=== PATIENT | female | born 1955 | race Caucasian/White ===

== ENCOUNTER 2025-07-27 00:19 | Day surgery (SDC) | payer MEDICARE, SELFPAY ==
[2025-07-17 14:33] VITALS: BMI 27.2
--- NOTE | 2025-07-17 15:40 | PC.NURSE ---
Spoke with _PATIENT regarding medication PLAVIX. PATIENT verbalizes understanding that the last dose is to be taken on 07/19/2025 and the Endoscopist will instruct them when to restart after the procedure.
--- OUTSIDE RECORDS SUMMARY | 2025-07-27 00:22 | XMS_ITS | Clinical Summary ---
Author Organization [facility] Address [address] [place] [address] Care Team Providers Care Warehouseman Name Role Phone Atif Hernández DO Primary Care Provider [phone] Source Comments [facility],non-owned Affiliates and Associated Physician Practices is amultiple site organization consisting of ambulatory clinics and [place]in [place] and [place]. This disclosure is being madepursuant to the Care Everywhere program and may not contain all information available regarding this patient. Last updated 18.[facility] Allergies No known active allergies Medications * Be aware that medications may not be up to date on this document. Alwaysverify current medications with the patient. carvedilol (COREG) 25 MG tablet TK 1 T PO QD 1 04/06/2017 Active JARDIANCE 10 MG tablet TK 1 T PO QD IN THE MORNING 6 04/06/2017 Active losartan-hydroC HLOROthiazide (HYZAAR) 100-25 MG tablet TK 1 T PO QD 3 04/12/2017 Active metFORMIN (GLUCOPHAGE) 500 MG tablet TK 2 TS PO BID WITH THE MORNING AND KORY MEAL 3 04/12/2017 Active simvastatin (ZOCOR) 40 MG tablet TK 1 T PO QD 1 04/06/2017 Active [place]-3 Fatty Acids (RA FISH OIL) 1000 MG Active clobetasol (TEMOVATE) 0.05 % ointment Apply to affected area every 12 hours 04/14/2015 Active Cholecalciferol (VITAMIN D3) 400 units Active nystatin (MYCOSTATIN) 051732 UNIT/GM cream Apply to affected area 2 times daily Apply to the affected area 2 times daily to the vulva in the am and evening. 30 g 06/16/2020 Active triamcinolone acetonide (KENALOG) 0.1 % cream Apply to affected area 2 times daily 30 g 06/16/2020 Active Active Problems Problem Noted Date Diagnosed Date Hypertension Diabetes Hypercholesteremia Lichen sclerosus Immunizations Immunization Administration Dates Next Due INFLUENZA VACCINE, QUADR. 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 Gender Identity Not on file Sexual Orientation Not on file Last Filed Vital Signs Vital Sign Reading Time Taken Comments Blood Pressure 124/84 06/16/2020 2:54 PM CDT Pulse - - Temperature 36.2 C (97.2 F) 06/16/2020 2:54 PM CDT Respiratory Rate - - Oxygen Saturation - - Inhaled Oxygen Concentration - - Weight 85 kg (187 lb 6.4 oz) 06/16/2020 2:54 PM CDT Height 160 cm (5' 3) 06/16/2020 2:54 PM CDT Body Mass Index 33.2 06/16/2020 2:54 PM CDT Plan of Treatment Health Maintenance Due Date Last Done Comments BONE DENSITY TESTING 1955 COLOGUARD (AGES 45-75) - COL ON CA SCREENING 1956 COLON MONITORING 1956 COLONOSCOPY - COLON CA SCREENING [address] CT COLONOGRAPHY - COLON CA SCREENING 1956 Colorectal Cancer Screening 1956 FIT - COLON CA SCREENING 1956 FLEX SIG - COLON CA SCREENING 1956 HEPATITIS C SCREENING 02/15/1974 DIABETES-SERUM CREATININE 02/19/1974 DTAP/TDAP/TD VACCINES (1 - Tdap) 02/19/1975 PNEUMOCOCCAL VACCINE 50+ (1 of 1 - PCV) 02/19/2006 Respiratory Syncytial Virus (RSV) Vaccine Pt: or over 60 yrs (1 - Risk 50-74 years 1-dose series) 02/19/2006 ZOSTER VACCINE (1 of 2) 02/19/2006 DIABETES-FOOT EXAM WITH MONOFILAMENT 06/10/2019 DIABETES-HGB A1C 06/10/2019 MAMMOGRAM 03/18/2021 03/18/2019, 03/18/2019, 02/09/2017 DEPRESSION SCREENING 09/03/2024 DIABETES - URINE PROTEIN SCREENING 09/03/2024 COVID-19 VACCINE (1 - 2024-2 6 season) 2025 INFLUENZA VACCINE (#1) 2025 04/17/2019 HEPATITIS B VACCINE Aged Out No longe r eligible based on patient's age to complete this topic HIB VACCINE Aged Out No longer eligi ble based on patient's age to complete this topic HPV VACCINE Aged Out No longer eligi ble based on patient's age to complete this topic MENINGOCOCCAL (Group B) VACCINE SHARED DECISION-MAKING Aged Out No longer eligible based on patient's age to complete this topic MENINGOCOCCAL GROUPS A/C/Y/W VACCINE Aged Out No longer eligible b ased on patient's age to complete this topic Procedures Procedure Name Priority Date/Time Associated Diagnosis Comments MAMMOGRAPHY ORDER Routine 03/18/2019 from Last 3 Months or Most Recently Relevant to Health Maintenance Results * MAMMOGRAPHY ORDER (03/18/2019) Anatomical Region Laterality Modality Mammography Kathryn Olmstead MD MAMMO ORDERABLES Final Resu lt from Last 3 Months or Most Recently Relevant to Health Maintenance Insurance [employer] Care Teams Warehouseman Relationship Specialty Start Date End Date Greeling, Atif L, DO [address] [place] [address] PCP - General Internal Medicine 06/11/19
--- OUTSIDE RECORDS SUMMARY | 2025-07-27 00:22 | XMS_ITS | Clinical Summary ---
Author Organization [facility] Address [address] [place] [address] Care Team Providers Care Questioned Documents Examiner Name Role Phone Ayo Regalado MD Unavailable [phone] Harman Godfrey DO Primary Care Provider [phone] Allergies Active Allergy Reactions Criticality Noted Date Comments Penicillin G Rash Medium 11/04/2024 Medications pen needle, diabetic (BD Ultra-Fine Mini Pen Needle) 31 gauge x 3/16 needleIndicatio ns:Type 2 diabetes mellitus with hyperglycemia, without long-term current use of insulin (HCC) Use one pen needle daily to inject insulin 100 each 3 1 Active blood-glucose meter kitIndications: Type 2 diabetes mellitus with hyperglycemia, without long-term current use of insulin (HCC) Use daily or as directed for monitoring of diabetes 1 each 1 Active OneTouch Ultra2 Meter misc USE TO TEST TWICE DAILY 1 Active omega-3 fatty acids-fish oil 300-1,000 mg capsule Take 2 capsules (2 g total) by mouth daily Active carvediloL (COREG) 25 mg tablet Take 1 tablet (25 mg total) by mouth 2 (two) times a day with meals Active cholecalciferol 25 mcg (1,000 unit) tablet Take 1 tablet (1,000 Units total) by mouth daily Active diphenhydrAMINE 25 mg capsule Take 1 tablet/capsule (25 mg total) by mouth every 8 (eight) hours as needed for itching Active loratadine (CLARITIN) 10 mg tablet Take 1 tablet (10 mg total) by mouth daily Active losartan (COZAAR) 100 mg tablet Take 1 tablet (100 mg total) by mouth daily Active chlorhexidine (PERIDEX) 0.12 % oral rinse 5 Active Afrin, oxymetazoline, 0.05 % nasal spray USE 2 SPRAYS IN EACH NOSTRIL EVERY 12 HOURS FOR 4 DAYS NEEDED FOR NASAL CONGESTION 5 Active lancets (PredictSpringTouch DelFRESS Lancets) 30 gauge miscIndications :Type 2 diabetes mellitus with hyperglycemia, with long-term current use of insulin ([facility]) Check BG bid 200 each 3 5 Active clopidogreL (PLAVIX) 75 mg tabletIndicatio ns:Stroke with cerebral ischemia ([facility]) Take 1 tablet (75 mg total) by mouth daily 90 tablet 3 5 11/13/19 Active cetirizine (ZyrTEC) 10 mg tablet Take 1 tablet (10 mg total) by mouth daily 5 Active PredictSpringTouch Ultra Test stripIndication s:Type 2 diabetes mellitus with hyperglycemia, with long-term current use of insulin ([facility]) USE TO TEST TWICE DAILY 200 strip 1 5 Active semaglutide (OZEMPIC) 2 mg/dose (8 mg/3 mL) pen injector injectionIndica tions:type 2 diabetes mellitus Inject 2 mg under the skin once a week 9 mL 3 5 06/17/20 Active empagliflozin (Jardiance) 25 mg tabletIndicatio ns:type 2 diabetes mellitus Take 1 tablet (25 mg total) by mouth daily 90 tablet 3 5 Active atorvastatin (LIPITOR) 40 mg tabletIndicatio ns:Hyperlipidem ia associated with type 2 diabetes mellitus (HCC) Take 1 tablet (40 mg total) by mouth daily 90 tablet 3 5 06/17/20 26 Active metFORMIN (GLUCOPHAGE) 500 mg tabletIndicatio ns:Type 2 diabetes mellitus with hyperglycemia, with long-term current use of insulin ([facility]) Take 2 tablets (1,000 mg total) by mouth 2 (two) times a day with meals 360 tablet 3 5 06/17/20 Active Active Problems Problem Noted Date Diagnosed Date Iron deficiency anemia 03/11/2025 Assessment & Plan (03/11/2025 11:04 AM CDT): Chronic problem. CBC WNL when checked 08/2024. Would like iron studies/labs checked. Will forward to Dr Godfrey with results. Will update labs. Does not mychart. Verified phone #/address to contact re: results. Stroke with cerebral ischemia 08/31/2024 Assessment & Plan (11/12/2024 3:01 PM CDT): Betty had a left malcolm radiata stroke in August of 2024 resulting in slurred speech and difficulty with using her right hand. Stroke workup including CTA of head and neck and echocardiogram were unremarkable. She reports significant improvement in her symptoms and denies any loss of functionality. The patient endorses compliance with her antiplatelet and high-intensity statin therapy. Plan: Continue clopidogrel 75 mg daily. Continue atorvastatin 40 mg daily. Continue blood glucose control, the patient is followed by endocrinology. Advised the patient to check blood pressures regularly at home, dizziness could be due to low blood pressures. Continue well-balanced diet and regular physical activity. Discussed BEFAST and the importance of presenting to the ED at the onset of any stroke-like symptoms. Follow up in 1 year. Class 1 obesity due to exces s calories with serious comorbidity and body mass index (BMI) of 31.0 to 31.9 in adult 09/20/2022 Assessment & Plan (09/20/2022 2:51 PM FINANCIAL INVESTIGATOR): Discussed healthy diet and importance of regular physical activity (20- 30min/day, 150min/wk). Microalbuminuria due to type 2 diabetes mellitus 12/09/2020 Assessment & Plan (06/17/2025 8:31 AM CDT): Chronic problem. Currently taking Losartan 100mg. MA improved from 03/05/24 (1696) to now 03/11/25 (465). Assessment & Plan (03/11/2025 10:45 AM CDT): Chronic problem. Currently taking Losartan 100mg. Last MA: 03/05/24 (1696). Will update labs. Does not mychart. Verified phone #/address to contact re: results. Assessment & Plan (11/04/2024 1:21 PM FINANCIAL INVESTIGATOR): Chronic problem. Currently taking Losartan 100mg. Last MA: 03/05/24 (1696). Assessment & Plan (03/05/2024 2:04 PM CDT): Chronic problem. Currently taking Losartan 100mg. Last MA: 09/20/22 (264). Will update labs today. Does not mychart. Verified phone #/address to contact re: results. Assessment & Plan (07/31/2023 2:34 PM FINANCIAL INVESTIGATOR): Chronic problem. Losartan 100mg. Last MA: 09/20/22 (264). Assessment & Plan (12/09/2020 2:56 PM CDT): Need to improve DM control On ARB with Losartan Adequate BP control Hyperlipidemia associated with type 2 diabetes [place] 05/09/2018 Assessment & Plan (06/17/2025 8:29 AM CDT): Chronic problem. Controlled LDL on current Atorvastatin 40mg & vascepa 2gm bid. Last lipid panel: 03/11/25 LDL=56, QW=862. Assessment & Plan (03/11/2025 10:44 AM CDT): Chronic problem. Controlled LDL on current Simvastatin 40mg & vascepa 2gm bid. Last lipid panel: 09/01/24 LDL=69, BF=092. Will update labs. Does not mychart. Verified phone #/address to contact re: results. Assessment & Plan (11/04/2024 1:19 PM FINANCIAL INVESTIGATOR): Chronic problem. Controlled LDL on current Simvastatin 40mg & vascepa 2gm bid. Last lipid panel: 09/01/24 LDL=69, YG=238. Assessment & Plan (03/05/2024 2:05 PM CDT): Chronic problem. Controlled LDL on current Simvastatin 40mg & vascepa 2gm bid. Last lipid panel: 09/20/22 LDL=36, LS=324. Will update labs today. Does not mychart. Verified phone #/address to contact re: results. Assessment & Plan (07/31/2023 2:33 PM FINANCIAL INVESTIGATOR): Chronic problem. Controlled LDL on current Simvastatin 40mg & vascepa 2gm bid. Last lipid panel: 09/20/22 LDL=36, KK=181. Assessment & Plan (03/05/2023 4:12 PM CDT): Uncontrolled, with hypertriglyceridemia Will start Vascepa Will check ApoB and Lipoprotein a Assessment & Plan (09/20/2022 3:14 PM FINANCIAL INVESTIGATOR): Chronic problem, simvastatin 40mg daily. Last lipid 06/2021. No changes. Updated labs today. Verified that she uses [facility]. Aware to check results/results letter in [facility]. Will contact by phone if needed. Assessment & Plan (05/02/2022 3:21 PM CDT): Chronic problem. On statin therapy, no changes. Assessment & Plan (06/27/2021 4:02 PM CDT): Chronic problem. On statin therapy, no changes. Assessment & Plan (09/06/2020 9:15 AM FINANCIAL INVESTIGATOR): At goal on current medications. Continue statin therapy. Assessment & Plan (06/07/2020 12:23 PM CDT): Will check lipid panel Assessment & Plan (01/07/2020 8:43 AM CDT): Continue statin therapy Assessment & Plan (04/03/2019 2:09 PM CDT): Goal of treatment , LDL cholesterol less than 100 ( less than 70 in patients with history of heart attacks and / or strokes ) NonHDL cholesterol ( total cholesterol minus HDL cholesterol ) goal less than 130 ( less than 100 in patients with history of heart attacks and / or strokes ) Low cholesterol, low fat diet was discussed and advised. Daily exercise On statin therapy . Add vascepa Assessment & Plan (09/19/2018 3:55 PM FINANCIAL INVESTIGATOR): Goal of treatment , LDL cholesterol less than 100 ( less than 70 in patients with history of heart attacks and / or strokes ) NonHDL cholesterol ( total cholesterol minus HDL cholesterol ) goal less than 130 ( less than 100 in patients with history of heart attacks and / or strokes ) Low cholesterol, low fat diet was discussed and advised. Daily exercise On statin therapy Assessment & Plan (05/09/2018 2:19 PM CDT): Goal of treatment , LDL cholesterol less than 100 ( less than 70 in patients with history of heart attacks and / or strokes ) NonHDL cholesterol ( total cholesterol minus HDL cholesterol ) goal less than 130 ( less than 100 in patients with history of heart attacks and / or strokes ) Low cholesterol, low fat diet was discussed and advised. Daily exercise On statin therapy Type 2 diabetes mellitus wit h hyperglycemia, with long-term current use of insulin 04/18/2017 Assessment & Plan (06/17/2025 8:32 AM CDT): Chronic problem. A1c improved from 5.8% 03/11/25 to now 5.7%. Current medications: Metformin 1000mg twice daily with meals Jardiance 25mg daily Ozempic 2 mg weekly Basaglar 5 units nightly UTD on labs. DM eye exam in 2021. Will call to schedule DM eye exam. Strive for regular exercise (30min most days) and diet (get at least 4-5 servings of fruit and veggies daily, avoid processed foods, increase lean protein intake and decrease carb portions as well as fruit juices, regular soda & desserts). Watch carbs and simple sugars. Check the blood sugar weekly. Check the feet daily for skin breakdown and infection. Assessment & Plan (03/11/2025 11:01 AM CDT): Chronic problem. A1c improved from 7.3% 11/04/24 to now 5.8%. occasionally wakes feeling ill but not checking BG. -cut the basaglar down to 5 units for the next week. Monitor your morning blood sugars. If they don't go above 140, the following week stop the basaglar & continue to monitor the blood sugar. Current medications: Metformin 1000mg twice daily with meals Jardiance 25mg daily Ozempic 2 mg weekly Basaglar 5 units nightly Will update labs. Does not mychart. Verified phone #/address to contact re: results. DM eye exam in 2021. Will call to schedule DM eye exam. Strive for regular exercise (30min most days) and diet (get at least 4-5 servings of fruit and veggies daily, avoid processed foods, increase lean protein intake and decrease carb portions as well as fruit juices, regular soda & desserts). Watch carbs and simple sugars. Check the blood sugar weekly. Check the feet daily for skin breakdown and infection. Assessment & Plan (11/04/2024 1:46 PM FINANCIAL INVESTIGATOR): Chronic problem. A1c improved from 8.9% 09/01/24 to now 7.3%. Increase Ozempic from 1mg to 2mg weekly. Current medications: Metformin 1000mg twice daily with meals Jardiance 25mg daily Ozempic 2 mg weekly Basaglar 10 units nightly UTD on labs. DM eye exam in 2021. Will call to schedule DM eye exam. Strive for regular exercise (30min most days) and diet (get at least 4-5 servings of fruit and veggies daily, avoid processed foods, increase lean protein intake and decrease carb portions as well as fruit juices, regular soda & desserts). Watch carbs and simple sugars. Check the blood sugar weekly. Check the feet daily for skin breakdown and infection. Assessment & Plan (03/05/2024 2:18 PM CDT): Chronic problem. A1c improved very slightly from 7.7% 07/31/23 to now 7.6%. was off Ozempic over 1 month & recently at all-inclusive x9 days & did not watch diet. Current medications: Metformin 1000mg twice daily with meals Jardiance 25mg daily Ozempic 1mg weekly Basaglar 10 units nightly Will update labs today. Does not mychart. Verified phone #/address to contact re: results. DM eye exam in 2022. Will call to schedule DM eye exam. Strive for regular exercise (30min most days) and diet (get at least 4-5 servings of fruit and veggies daily, avoid processed foods, increase lean protein intake and decrease carb portions as well as fruit juices, regular soda & desserts). Watch carbs and simple sugars. Check the blood sugar weekly. Check the feet daily for skin breakdown and infection. Assessment & Plan (07/31/2023 2:35 PM FINANCIAL INVESTIGATOR): Chronic problem. Current medications: Metformin 1000mg twice daily with meals Jardiance 25mg daily Ozempic 1mg weekly Basaglar 10 units nightly UTD on labs. DM eye exam Strive for regular exercise (30min most days) and diet (get at least 4-5 servings of fruit and veggies daily, avoid processed foods, increase lean protein intake and decrease carb portions as well as fruit juices, regular soda & desserts). Watch carbs and simple sugars. Check the blood sugar daily. Check the feet daily for skin breakdown and infection. Assessment & Plan (03/05/2023 4:13 PM CDT): Chronic, well-controlled Continue current regimen including Ozempic, Jardiance, metformin and Basaglar Assessment & Plan (09/20/2022 3:14 PM FINANCIAL INVESTIGATOR): Chronic problem, has been off of basaglar x2 mos & A1c has remained steady. Plans to retire this summer. Continue current medications: Metformin 1 gm BID Jardiance 25 mg Ozempic 1 mg weekly Basaglar 10 units qHS Will update labs today. Verified that she uses mychart. Aware to check results/results letter in [email or web address]. Will contact by phone if needed. Assessment & Plan (05/02/2022 3:23 PM CDT): Chronic problem, not at goal. Resume metformin 1000 mg BID. Increase Ozempic to 1 mg. Will stop Januvia as she had some GI side effects when Ozempic was initially started at 0.5 mg and going to get more benefit from GLP1a vs DDPIV. Continue Jardiance and Basaglar. If CBGs start to drop low again once on this combination, let us know and we can adjust or stop the Basaglar. Update routine labs. Assessment & Plan (06/27/2021 4:03 PM CDT): Chronic problem, significantly improved despite being off medications for a few weeks. No medication changes today, discussed as she's back on all meds and watching diet if starts to have lows then taper down Lantus. Schedule eye exam. Update MA/Cr and CMP today. Assessment & Plan (12/09/2020 2:55 PM CDT): Hba1c was Lab Results Component Value Date HGBA1C 8.6 12/09/2020 today, indicating inadequate DM control Goal blood sugars in the 120-150 range , with Hb1c under 7.0 % was explained 1800 calorie, consistent carb diet recommended. No more than 30-45 grams of carbs per meal recommended, as well as avoiding high concentrated sweet drinks . 25-45 min daily exercise, combining both aerobic and resistance exercise recommended. The need to monitor blood glucose before meals and bedtime was discussed. Prevention and treatment of hyypoglcyemia discussed. Increase Lantus to 12 units hs Start Ozempic, 0.25 mg weekly x 4 wks, then continue with 0.5 mg weekly Assessment & Plan (09/06/2020 9:37 AM FINANCIAL INVESTIGATOR): Will draw lab A1c as cannot obtain POC. Suspect it is more elevated that DANIEL. DM for > 10 years. Not compliant with diet. Start Lantus 10 units and provided with instructions to increase to goal of low 100's. Check BG bid. Reviewed importance of diet on BG control. Assessment & Plan (06/07/2020 12:26 PM CDT): A1c worsening to 9.1. Not compliant with taking medication. Increase Jardiance to 25 mg. Start Januvia 100, Continue metformin. Advised to get in some form of daily exercise. Assessment & Plan (01/07/2020 8:44 AM CDT): Continue with Onglyza, metformin and Jardiance. Check BG once a day before a Meal. BG goals reviewed. Assessment & Plan (04/03/2019 2:05 PM CDT): Hba1c was Lab Results Component Value Date HGBA1C 7.8 04/03/2019 today, indicating sub-optimal DM control 1800 calorie, consistent carb diet recommended 25-45 min daily aerobic and resistance exercise recommended Prevention and treatment of hyypoglcyemia discussed. Blood glucose monitoring with fingers sticks 1-2 x day . Oral medications: continue current regimen Assessment & Plan (09/19/2018 3:54 PM FINANCIAL INVESTIGATOR): Hba1c was Lab Results Component Value Date HGBA1C 9.8 09/19/2018 today, indicating poor , worsening DM control 1800 calorie, consistent carb diet recommended 25-45 min daily aerobic and resistance exercise recommended Prevention and treatment of hyypoglcyemia discussed. Blood glucose monitoring with fingers sticks 1-2 x day . Oral medications: restart Ongliza Would consider starting insulin next OV Assessment & Plan (05/09/2018 2:19 PM CDT): Your Hba1c today was: Lab Results Component Value Date HGBA1C 8.4 05/09/2018 meaning a 3 month average sugar of : 200 Your goal hba1c is under 7.0 to prevent terminologist diabetes complications ( eye , kidney and nerve damage ) . Your goal sugars are in the 90-130 range Daily aerobic ( walking, riding a bike, swimming ) and resistance exercises ( light weight lifting, resistance band stretching ) for at least 30 minutes is recommended If you can not walk, chair exercises is very acceptable. As little as 15-20 minutes exercise , in one or two sessions a day, is still very helpful and will help to improve your diabetes control . Eat small portion meals, no more than 1800 calories Diet Try to eat not more than than 2-3 servings of carbs ( starches ) wiith your meals. Avoid soft drinks, including regular sodas , fruit juices and sweetened tea. Drink water instead. Eat plenty of green and leafy vegetables, including salads. Take your medications regularly Monitor your sugar levels with finger sticks regularly and keep a log sheet or book. Bring your sugar meter and /or a log book or log sheet to every office visit. Might consider use of Trulicity, which would help to curve your appetite. Assessment & Plan (10/18/2017 3:44 PM FINANCIAL INVESTIGATOR): Hba1c was 7.6 today, indicating sub-optimal DM control 1800 calorie, consistent carb diet recommended 30 min daily aerobic and resistance exercise recommended Prevention and treatment of hyypoglcyemia discussed. Blood glucose monitoring with fingers sticks 1-2 x day . Assessment & Plan (08/08/2017 1:10 PM FINANCIAL INVESTIGATOR): A1c 7.6. Restart Onglyza. No change to other medication. Needs to focus on food choices. Holiday eating strategies discussed. Assessment & Plan (04/18/2017 4:05 PM CDT): A1c improved at 7.5 but still suboptimal. OK to stay off Bydureon for now. Action of meds and BG goals reviewed. Needs to check BG once daily rotating times ac. Resume walking daily. Watch caloric intake. Re-evaluate meds and A1c in 3 months. Hypertension associated with diabetes 04/18/2017 Assessment & Plan (06/17/2025 8:30 AM CDT): Chronic problem. Controlled on current Carvedilol 25mg bid, losartan 100mg daily Assessment & Plan (03/11/2025 10:54 AM CDT): Chronic problem. Controlled on current Carvedilol 25mg bid, losartan 100mg daily, HCTZ 25mg daily Getting dizzy at times. Has lost 15# since 11/2024. Will stop the HCTZ at this time. Will discuss at her appt w/PCP this month. No h/o CHF, DE or CVA. Will update labs. Does not mychart. Verified phone #/address to contact re: results. Assessment & Plan (11/04/2024 1:20 PM FINANCIAL INVESTIGATOR): Chronic problem. Controlled on current Carvedilol 25mg bid, losartan 100mg daily, HCTZ 25mg daily Assessment & Plan (03/05/2024 2:04 PM CDT): Chronic problem. Controlled on current Carvedilol 25mg bid, losartan 100mg daily, HCTZ 25mg daily Will update labs today. Does not mychart. Verified phone #/address to contact re: results. Assessment & Plan (07/31/2023 2:33 PM FINANCIAL INVESTIGATOR): Chronic problem. Controlled on current Carvedilol 25mg bid, losartan 100mg daily, HCTZ 25mg daily Assessment & Plan (03/05/2023 4:12 PM CDT): Chronic, well-controlled Continue losartan Assessment & Plan (09/20/2022 3:14 PM FINANCIAL INVESTIGATOR): Chronic problem, well controlled on current regimen. No changes at this time. Updated labs today. Verified that she uses [facility]. Aware to check results/results letter in [facility]. Will contact by phone if needed. Assessment & Plan (05/02/2022 3:21 PM CDT): Controlled on current medications, no changes. Assessment & Plan (06/27/2021 3:18 PM CDT): Chronic stable problem. Controlled on current medications, no changes. Assessment & Plan (12/09/2020 2:55 PM CDT): Goal blood pressure is less than 140/85 Low salt diet was discussed andd recommended The importance of daily aerobic exercise was also emphasized. Continue current meds, including ANNIA-I or ARB, e.g. Losartan Assessment & Plan (09/06/2020 9:13 AM FINANCIAL INVESTIGATOR): Controlled on current medications. Continue plan. Assessment & Plan (06/07/2020 12:23 PM CDT): Controlled on current medications. Continue plan. Assessment & Plan (01/07/2020 8:43 AM CDT): Continue current medication plan Assessment & Plan (04/03/2019 2:05 PM CDT): Goal of treatment , LDL cholesterol less than 100 ( less than 70 in patients with history of heart attacks and / or strokes ) NonHDL cholesterol ( total cholesterol minus HDL cholesterol ) goal less than 130 ( less than 100 in patients with history of heart attacks and / or strokes ) Low cholesterol, low fat diet was discussed and advised. Daily exercise On statin therapy Assessment & Plan (09/19/2018 3:54 PM FINANCIAL INVESTIGATOR): Goal blood pressure is less than 140/85 Low salt diet recommended Daily aerobic exercise Continue current meds, including ANNIA-I or ARB Assessment & Plan (05/09/2018 2:20 PM CDT): Goal blood pressure is less than 140/85 Low salt diet recommended Daily aerobic exercise Continue current meds, including ANNIA-I or ARB Assessment & Plan (10/18/2017 3:45 PM FINANCIAL INVESTIGATOR): Goal blood pressure is less than 140/85 Low salt diet recommended Daily aerobic exercise Continue current meds, including ANNIA-I or ARB Assessment & Plan (08/08/2017 1:10 PM FINANCIAL INVESTIGATOR): Controlled on current medications. Assessment & Plan (04/18/2017 4:06 PM CDT): Controlled on current medications. Resolved Problems Problem Noted Date Diagnosed Date Resolved Date Hyperlipidemia 04/18/2017 09/20/2022 Assessment & Plan (10/18/2017 3:45 PM FINANCIAL INVESTIGATOR): Goal of treatment , LDL cholesterol less than 100 ( less than 70 in patients with history of heart attacks and / or strokes ) NonHDL cholesterol ( total cholesterol minus HDL cholesterol ) goal less than 130 ( less than 100 in patients with history of heart attacks and / or strokes ) Low cholesterol, low fat diet was discussed and advised. Daily exercise On statin therapy Check lipids Assessment & Plan (08/08/2017 1:10 PM FINANCIAL INVESTIGATOR): At goal on current medications. Assessment & Plan (04/18/2017 4:05 PM CDT): At goal on current medications. Non morbid obesity due to excess calories 04/18/2017 09/20/2022 Assessment & Plan (08/08/2017 1:11 PM FINANCIAL INVESTIGATOR): Continue with exercise. Suspect BG issues are related to pc excursions and food choices. Discussed at length. Assessment & Plan (04/18/2017 4:05 PM CDT): Importance of following diet and exercising discussed. Encounters Date Type Department Care Team Description 06/17/2025 8:30 AM CDT Office Visit [facility] Diabetes [facility] Endocrinology [address] [place] [phone] Tracy Cheng, [place] Type 2 diabetes mellitus with hyperglycemia, with long-term current use of insulin (HCC) (Primary Dx); Hypertension associated with diabetes (HCC); Hyperlipidemia associated with type 2 diabetes mellitus (HCC); Microalbuminuria due to type 2 diabetes mellitus (HCC) 06/04/2025 8:45 AM CDT - 06/04/2025 11:59 PM CDT Hospital Encounter [facility] [address] [id number] Screening mammogram, encounter for Discharge Disposition: Discharge to home or self care from Last 3 Months Medical History Medical History Date Comments Hyperlipidemia Hyperlipidemia Hypertension Hypertension Type 2 diabetes mellitus Family History Medical History Relation Name Comments Diabetes type II Maternal Grandmother Juliette betes mellitus type 2; Relation Name Status Comments Maternal Grandmother Social History Tobacco Use Types Packs/Day Years Used Date Smoking Tobacco: Never Smokeless Tobacco: Never Alcohol Use Standard Drinks/Week Comments Not Currently 0 (1 standard drink = 0.6 oz pur e alcohol) AUDIT-C Answer Date Recorded Q1: How often do you have a drink containing alc ohol? Monthly or less 11/12/2024 Average Number of Drinks Not on file Frequency of Binge Drinking Not on file 11/01 PHQ-2 Answer Date Recorded PHQ-2 Total Score (If total score is 3 or more points, staff should administer the PHQ-9) 0 09/20/2022 Personal Safety Answer Date Recorded Have you ever been in or are you currently in a harmful physical or emotional relationship or is someone making you feel afraid or unsafe? 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 Gender Identity Not on file Sexual Orientation Not on file Obstetrics History Para Term AB IAB SAB Ectopic Multiple Livin g Live Births 3 3 Date Outcome GA Total Labor Labor/2nd/3rd Weight Sex Type Anes PTL Qiana A1 A5 Name Clin Last Filed Vital Signs Vital Sign Reading Time Taken Comments Blood Pressure 130/86 06/17/2025 8:15 AM CDT Pulse 87 06/17/2025 8:15 AM CDT Temperature 36.7 C (98 F) 09/02/2024 11:58 AM FINANCIAL INVESTIGATOR Respiratory Rate 18 06/17/2025 8:15 AM CDT Oxygen Saturation 97% 11/12/2024 2:00 PM CDT Inhaled Oxygen Concentration - - Weight 67.3 kg (148 lb 6.4 oz) 06/17/2025 8:15 A M CDT Height 157.5 cm (5' 2.01) 06/17/2025 8:15 AM CD T Body Mass Index 27.14 06/17/2025 8:15 AM CDT Plan of Treatment Health Maintenance Due Date Last Done Comments Colon Cancer Screening-Colonoscopy 1955 Hepatitis C Screening 1955 Osteoporosis Screening-Bone Density Scan 1955 DTaP/Tdap/Td Vaccine (1 - Tdap) 02/19/1967 Hepatitis B Screening 02/19/1974 Pneumococcal vaccine 65+ (1 of 2 - PCV) 02/19/1975 Zoster Vaccine (1 of 2) 02/19/2006 Well Visit 65+ 02/19/2021 Depression Screening 09/20/2023 09/20/2022, 06/27/2021, 12/09/2020, Additional history exists Dilated Eye Exam 09/20/2023 09/20/2022, , 02/18/2018 Covid-19 Vaccine (4 - 2024-2 6 season) 2025 08/19/2021, 12/23/2020, 12/02/2020 Influenza Vaccine (#1) 2025 9, 04/17/2019, 06/03/2017 Fall Risk Assessment 09/02/2025 09/02/2024, 09/20/19 23 Foot Exam 11/04/2025 11/04/2024, 07/05, 05/02/2022, Additional history exists Hemoglobin A1C 12/16/2025 06/17/2025, /0 05/2025, 11/04/2024, Additional history exists Albumin Creatinine Ratio, Urine 03/11/2026 03/11/2025, 03/05/2024, 09/20/2022, Additional history exists Lipid Panel 03/11/2026 03/11/2025, 08/05, 03/05/2024, Additional history exists eGFR 03/11/2026 03/11/2025, 08/05, 09/01/2024, Additional history exists Breast Cancer Screening-Mammogram 06/04/2026 06/04/2025, 05/09/2024, 02/05/2023, Additional history exists Procedures Procedure Name Priority Date/Time Associated Diagnosis Comments POCT HEMOGLOBIN A1C Routine 06/17/2025 8:29 AM CDT Type 2 diabetes mellitus with hyperglycemia, with long-term current use of insulin (HCC) POCT GLUCOSE Routine 06/17/2025 8:22 AM CDT Type 2 diabetes mellitus with hyperglycemia, with long-term current use of insulin (HCC) SCREENING MAMMOGRAM BILATERAL W OSCAR Schedule Routine, Read Routine (OP Routine) 06/04/2025 9:16 AM CDT Screening mammogram, encounter for EGFR Routine 03/11/2025 11:12 AM CDT Type 2 diabetes mellitus with hyperglycemia, with long-term current use of insulin (HCC) Hypertension associated with diabetes (HCC) LIPID PANEL Routine 03/11/2025 11:12 AM CDT Type 2 diabetes mellitus with hyperglycemia, with long-term current use of insulin (HCC) Hyperlipidemia associated with type 2 diabetes mellitus (HCC) ALBUMIN CREATININE RATIO, URINE Routine 03/11/2025 11:12 AM CDT Type 2 diabetes mellitus with hyperglycemia, with long-term current use of insulin (HCC) Microalbuminuria due to type 2 diabetes mellitus (HCC) DIABETIC EYE EXAM Routine 09/20/2022 from Last 3 Months or Most Recently Relevant to Health Maintenance Results * (ABNORMAL) POCT hemoglobin A1c (06/17/2025 8:29 AM CDT) Hemoglobin A1C, POC 5.7(A) 4.0 - 5.6 % Blood 06/17/2025 8:29 AM CDT us Tracy Cheng NP POINT OF CARE TEST ORDERA BLES Final Result * (ABNORMAL) POCT glucose (06/17/2025 8:22 AM CDT) Glucose Blood, POC 136 Normal Fasting 70 - 100, Random <200 mg/dL Blood 06/17/2025 8:22 AM CDT us Tracy Cheng PRINTING BINDERY ASSISTANT POINT OF CARE TEST ORDERA BLES Final Result * Screening Mammogram Bilateral W Oscar (06/04/2025 9:16 AM CDT) Anatomical Region Laterality Modality Breast Bilateral Mammography Impressions 06/05/2025 1:46 PM CDT Bilateral No evidence of malignancy in either breast. OVERALL BI-RADS FINAL ASSESSMENT: 2 - Benign RECOMMENDATION: Recommend bilateral annual screening mammography. Narrative 06/05/2025 1:46 PM CDT EXAMINATION: Screening Mammogram Bilateral W Oscar: 06/04/2025 COMPARISON: Relevant prior studies available at the time of interpretation were reviewed, including the most recent mammogram on: 05/09/2024. TECHNIQUE: Mammography was performed with 2D and 3D digital breast tomosynthesis (DBT) images. CAD was utilized. BREAST PARENCHYMAL COMPOSITION: There are scattered areas of fibroglandular density. FINDINGS: Bilateral There is no suspicious mass, calcification, or architectural distortion in either breast. us Self Screening Mammogram IMG MAMMO PROCEDURES Fi nal Result * eGFR (03/11/2025 11:12 AM CDT) eGFR 74 >=60 mL/min/1. 73 m2 Comment: Interpretive Data Reference Interval Normal >/= 90 mL/min/1.73m2 Mildly decreased* 60 - 89 mL/min/1.73m2 Mildly to moderately decreased 45 - 59 mL/min/1.73m2 Moderately to severely decreased 30 - 44 mL/min/1.73m2 Severely decreased 15 - 29 mL/min/1.73m2 Kidney Failure < 15 mL/min/1.73m2 *Relative to young adult level Estimated glomerular filtration rate is determined by the 2020 CKD-EPI equation recommended by the National Kidney Foundation (A Unifying Approach to GFR Estimation: Recommendations of the NKF-ASK Task Force on Reassessing the Inclusion of Race in Diagnosing Kidney Disease, JASN 2020). The CKD-EPI equation should not be used for patients with unstable renal function and has not been validated in children and those over 70. Current interpretive data was last reviewed 2021. Blood 03/11/2025 11:1 2 AM CDT 03/11/2025 7:10 PM CDT us Tracy Cheng PRINTING BINDERY ASSISTANT LAB BLOOD ORDERABLES Adina l Result [facility] [id number] [facility] [place] [address] * (ABNORMAL) Albumin Creatinine Ratio, Urine (03/11/2025 11:12 AM CDT) Albumin Ur 452.9 mg/L Comment: Interpretive Data No reference range established. Current interpretive data was last revised 2019. Creatinine Ur 97.5 mg/dL [facility] GERBER Comment: Interpretive Data No reference range established. Current interpretive data was last revised 2019. Albumin Creatinine Ratio, Ur 465(H) 1 - 29 mg/g [facility] GERBER Urine 03/11/2025 11:1 2 AM CDT 03/11/2025 4:33 PM CDT us Tracy Cheng NP LAB URINE ORDERABLES Adina hatch Result [facility] [id number] [facility] [place] [address] * (ABNORMAL) Lipid panel (03/11/2025 11:12 AM CDT) Cholesterol 112 30 - 199 mg/dL Comment: Interpretive Data Ages < or = 19 years Acceptable: <170 mg/dL Borderline high: 170-199 mg/dL High: >or= 200 mg/dL Ages > or = 20 years Desirable: <200 mg/dL Borderline high: 200-239 mg/dL High: >or= 240 mg/dL Literature References: 1. Expert Panel on Integrated Guidelines for Cardiovascular Health and Risk Reduction in Children and Adolescents. Pediatrics 2011;128:S213 2. NCEP Expert Panel. Circulation 2004;110:227 Current Interpretive Data was last revised on 2018. Triglycerides 160(H) <=149 mg/dL [facility] GER[facility] Comment: Interpretive Data Ages < or = 9 years Acceptable: <75 mg/dL Borderline high: 75-99 mg/dL High: >or= 100 mg/dL Ages 10 to 20 years Acceptable: <90 mg/dL Borderline high: 90-129 mg/dL High: >or= 130 mg/dL Ages > or = 20 years Desirable: <150 mg/dL Borderline high: 150-199 mg/dL High: 200-499 mg/dL Very high: >or= 499 mg/dL Literature References: 1. Expert Panel on Integrated Guidelines for Cardiovascular Health and Risk Reduction in Children and Adolescents. Pediatrics 2011;128:S213 2. NCEP Expert Panel. Circulation 2004;110:227 Current Interpretive Data was last revised on 2018. HDL 29(L) >=40 mg/dL [facility] GER[facility] Comment: Interpretive Data Ages < or = 19 years Acceptable: >45 mg/dL Borderline low: 40-45 mg/dL Low: <40 mg/dL Ages > or = 20 years Desirable: >or= 60 mg/dL Low: <40 mg/dL Literature References: 1. Expert Panel on Integrated Guidelines for Cardiovascular Health and Risk Reduction in Children and Adolescents. Pediatrics 2011;128:S213 2. NCEP Expert Panel. Circulation 2004;110:227 Current Interpretive Data was last revised on 2018. LDL, calculated 56 <=129 mg/dL [facility] GERBER Comment: Interpretive Data Ages < or = 19 years Acceptable: <110 mg/dL Borderline high: 110-129 mg/dL High: >or= 130 mg/dL Ages > or = 20 years Optimal: <100 mg/dL Near optimal: 100-129 mg/dL Borderline high: 130-159 mg/dL High: >160 mg/dL Calculated using the Paul LDL-C estimating equation. This equation was implemented on 2024. Prior to this date LDL-C was estimated using the Friedewald equation. Literature References: 1. Expert Panel on Integrated Guidelines for Cardiovascular Health and Risk Reduction in Children and Adolescents. Pediatrics 2011;128:S213 2. NCEP Expert Panel. Circulation 2004;110:227 3. Paul Estes et al. LOUIS Cardiol. 2019January 01;5(5):540-548. doi: 10.1001/[email or web address].2020.0013 Current Interpretive Data was last revised on 2024. Non-HDL Cholesterol 83 mg/dL [facility] GER[facility] Comment: Interpretive Data Ages < or = 19 years Acceptable: <120 mg/dL Borderline high: 120-144 mg/dL High: >145 mg/dL Ages > or = 20 years When triglycerides are >200 mg/dL, Non-HDL cholesterol is a secondary target of therapy with treatment goals that are 30 mg/dL greater than the LDL cholesterol target. Literature References: 1. Expert Panel on Integrated Guidelines for Cardiovascular Health and Risk Reduction in Children and Adolescents. Pediatrics 2011;128:S213 2. NCEP Expert Panel. Circulation 2004;110:227 Current Interpretive Data was last revised on 2018. Chol/HDL ratio 4 [facility] GERBER Blood 03/11/2025 11:1 2 AM CDT 03/11/2025 4:33 PM CDT us Tracy Cheng NP LAB BLOOD ORDERABLES Adina l Result [facility] [id number] Department [place] [address] * Diabetic Eye Exam (09/20/2022) us Historical Provider HEALTH MAINTENANCE Edited Result - Final from Last 3 Months or Most Recently Relevant to Health Maintenance Insurance MEDICARE [facility] Advance Directives For more information, please contact: [phone] * Full Code (Latest Code Status on File) Date Activated Date Inactivated Comments 08/31/2024 10:37 PM 09/02/2024 7:00 PM Care Teams Questioned Documents Examiner Relationship Specialty Start Date End Date Harman Godfrey DO PCP - General Internal Medicine 11/04/24 Ayo Regalado MD Consulting Physician Ophthalmology 04/28/19
--- OUTSIDE RECORDS SUMMARY | 2025-07-27 00:22 | XMS_ITS | Patient Health Record ---
Author Organization BILLING FACILITY [employer] [facility] Address [address] [place] [address] Care Team Providers Care Mutuel Teller Name Role Phone José ManuelDavid nicolas Primary Care Provider [phone] REASON FOR REFERRAL No Information MEDICATIONS Medication SIG (Take, Route, Frequency, Duration) Notes Start Date End Date Status Jardiance 25 MG 1 tablet Orally Once a day Active metFORMIN HCl 500 MG 2 tablets with a me al Orally Twice a day Active Carvedilol 25 MG 1 tablet with food O rally Twice a day Active Simvastatin 40 MG 1 tablet in the even ing Orally Once a day Active hydroCHLOROthiazide 25 MG 1 tablet in th e morning Orally Once a day Active Losartan Potassium 100 MG 1 tablet Orally Once a day Active SOCIAL HISTORY Tobacco Use: Social History Observation Description Date Details (start date - stop date) Never Smoker NA - NA Sex Assigned At : Social History Observation Description Sex Assigned At Unknown Tobacco Use/Smoking Question Answer Notes Are you a nonuser Household Question Answer Notes Marital Status PLAN OF TREATMENT No Information MEDICAL (GENERAL) HISTORY Medical History History ICD Code T2DM HTN Hyperlipidemia
[2025-07-27 06:32] VITALS: BP 146/82; PULSE 94; RESP 18; TEMP 36.1; O2SAT 100
[2025-07-27] MEDS: LACTATED RINGERS 1,000 ML 150 ML IV CONT (06:44)
[2025-07-27] MEDS: SIMETHICONE ORAL SUSPENSION 20 MG/0.3 ML 30 ML BOTTLE 1.8 ML PO (07:12)
--- NOTE | 2025-07-27 07:20 | WPDANESEPPF ---
Anes - Initial Pre Proc Eval Procedure: Operation Date: 07/27/25 07:30 Proposed Procedures p EGD & Screening Colonoscopy - Damien Gaona MD Date/Time: 07/27/25 07:20 Surgeon: Damien Gaona MD Pre Op Diagnosis: Encounter for screening for malignant neoplasm of Patient Data Age: 70 Gender: F Height: 1.57 m Weight: 67.5 kg Last Vital Signs Temp 97 F L 07/27/25 06:32 Pulse 94 07/27/25 06:32 Resp 18 07/27/25 06:32 BP 146/82 H 07/27/25 06:32 Pulse Ox 100 07/27/25 06:32 O2 Del Method Room Air 07/27/25 06:32 Allergies Allergy/AdvReac Type Severity Reaction Status Date / Time Penicillins Allergy Intermediate Rash Verified 07/27/25 06:24 Home Medications ?Medication ?Instructions ?Recorded ?Confirmed ?Type ascorbic acid (vitamin C) 500 mg 500 mg PO DAILY 04/07/20 07/17/25 History tablet Held on 07/17/25. Instructions: Patient Condition aspirin 81 mg tablet,delayed 81 mg PO DAILY 04/07/20 07/17/25 History release (Adult Low Dose Aspirin) empagliflozin 10 mg tablet 10 mg PO DAILY 04/07/20 07/27/25 History (Jardiance) loratadine 10 mg tablet (Claritin) 10 mg PO DAILY 04/07/20 07/17/25 History metformin 500 mg tablet 1,000 mg PO BID 04/07/20 07/27/25 History tsfhmciu-vqkp-hoxh 8 mg-folic 400 1 tablet PO DAILY 04/07/20 07/17/25 History mcg-K 50 mcg-lutein 300 mcg tablet (Centrum Silver Women) Held on 07/17/25. Instructions: Patient Condition omega-3 fatty acids 1,000 mg 1,000 mg PO DAILY 04/07/20 07/17/25 History capsule (Fish Oil Concentrate) Held on 07/17/25. Instructions: Patient no longer taking semaglutide 1 mg/dose (4 mg/3 mL) 1 mg subcut WEEKLY 10/02/23 07/17/25 History subcutaneous pen injector (Ozempic) atorvastatin 40 mg tablet (Lipitor) 40 mg PO DAILY 10/07/24 07/17/25 History cholecalciferol (vitamin D3) 25 25 mcg PO DAILY 10/07/24 07/17/25 History mcg (1,000 unit) tablet Held on 07/17/25. Instructions: Patient Condition clopidogrel 75 mg tablet 75 mg PO DAILY 10/07/24 07/27/25 History diphenhydramine HCl 25 mg capsule 25 mg PO QHS PRN insomnia 10/07/24 07/17/25 History (Allergy (diphenhydramine)) losartan 100 mg tablet 100 mg PO DAILY #90 tabs 12/03/24 07/17/25 Rx carvedilol 25 mg tablet 25 mg PO Q12H #180 tabs 12/18/24 07/17/25 Rx empagliflozin 25 mg tablet 25 mg PO DAILY 07/17/25 07/17/25 History (Jardiance) semaglutide 2 mg/dose (8 mg/3 mL) 2 mg subcut WEEKLY 07/17/25 07/17/25 History subcutaneous pen injector (Ozempic) Laboratory Tests 07/27/25 06:41 POC Capillary Glucose 121 H mg/dl (65-105) Patient hx anesthesia problems: none Family hx anesthesia problems: none Results Review: All pre-operative results and documents have been reviewed as part of the pre-operative evaluation. [facility] Family History Family History Mother Patient's mother is in good health Patient's mother is Sibling Patient's sister is in good health Father Patient's father is Acute myocardial infarction Social History Social History Smoking status: Never smoker Second hand tobacco smoke exposure: No Alcohol intake: current Substance use: unknown Lack of Transportation: No Lack of Food: Never True Current Housing: I Have Housing Concerned About Future Housing: No Difficulty Paying Gas/Electric Bills: No Difficulty Paying for Meds: No Currently Unemployed: No Education: Bachelor's Degree Difficulty w/ Childcare or Family Care: No Anes - Eval Final PreProcedure Day of Procedure 07/27/25 07:20 Patient weight: normal Lungs: normal air movement Airway: Mallampati scale class II and special considerations (Missing L upper and R lower teeth, none loose. ) Neurological: alert and oriented Last oral intake: >/= 8 hours ASA classification: III Emergent: no Anesthetic plan: proceed Anesthesia type and monitoring: general GIVS and standard monitoring Results Review: All pre-operative results and documents have been reviewed as part of the pre-operative evaluation. HTN, hyperlipidemia, DM fsbs 121, pt w mild CVA 2023, on plavix (held for this) and without and focal deficits. Informed Consent: The patient's anesthetic plan and its attendant risks and benefits were discussed with the patient/family/POA. Questions were solicited and answers provided to the satisfaction of the patient/family/POA.
--- NOTE | 2025-07-27 07:28 | PM.IMHP ---
H&P: HPI History of Present Illness Date/Time: 07/27/25 07:28 Chief Complaint: Dysphagia-screening colonoscopy Narrative: Patient referred for EGD and colonoscopy. She has a history of 6 months of intermittent dysphagia exclusive to solids and some pills. Her last colonoscopy was more than 14 years ago so she was deemed a candidate for screening colonoscopy. Review of Systems Review of Systems: All systems reviewed & are unremarkable except as noted in HPI and below PMFSH Family History Family History Mother Patient's mother is in good health Patient's mother is Sibling Patient's sister is in good health Father Patient's father is Acute myocardial infarction Social History Social History Smoking status: Never smoker Second hand tobacco smoke exposure: No Alcohol intake: current Substance use: unknown Lack of Transportation: No Lack of Food: Never True Current Housing: I Have Housing Concerned About Future Housing: No Difficulty Paying Gas/Electric Bills: No Difficulty Paying for Meds: No Currently Unemployed: No Education: Bachelor's Degree Difficulty w/ Childcare or Family Care: No Meds Home Medications and Allergies Home Medications ?Medication ?Instructions ?Recorded ?Confirmed ?Type ascorbic acid (vitamin C) 500 mg 500 mg PO DAILY 04/07/20 07/17/25 History tablet Held on 07/17/25. Instructions: Patient Condition aspirin 81 mg tablet,delayed 81 mg PO DAILY 04/07/20 07/17/25 History release (Adult Low Dose Aspirin) empagliflozin 10 mg tablet 10 mg PO DAILY 04/07/20 07/27/25 History (Jardiance) loratadine 10 mg tablet (Claritin) 10 mg PO DAILY 04/07/20 07/17/25 History metformin 500 mg tablet 1,000 mg PO BID 04/07/20 07/27/25 History zopsqloc-aabc-edxj 8 mg-folic 400 1 tablet PO DAILY 04/07/20 07/17/25 History mcg-K 50 mcg-lutein 300 mcg tablet (Centrum Silver Women) Held on 07/17/25. Instructions: Patient Condition omega-3 fatty acids 1,000 mg 1,000 mg PO DAILY 04/07/20 07/17/25 History capsule (Fish Oil Concentrate) Held on 07/17/25. Instructions: Patient no longer taking semaglutide 1 mg/dose (4 mg/3 mL) 1 mg subcut WEEKLY 10/02/23 07/17/25 History subcutaneous pen injector (Ozempic) atorvastatin 40 mg tablet (Lipitor) 40 mg PO DAILY 10/07/24 07/17/25 History cholecalciferol (vitamin D3) 25 25 mcg PO DAILY 10/07/24 07/17/25 History mcg (1,000 unit) tablet Held on 07/17/25. Instructions: Patient Condition clopidogrel 75 mg tablet 75 mg PO DAILY 10/07/24 07/27/25 History diphenhydramine HCl 25 mg capsule 25 mg PO QHS PRN insomnia 10/07/24 07/17/25 History (Allergy (diphenhydramine)) losartan 100 mg tablet 100 mg PO DAILY #90 tabs 12/03/24 07/17/25 Rx carvedilol 25 mg tablet 25 mg PO Q12H #180 tabs 12/18/24 07/17/25 Rx empagliflozin 25 mg tablet 25 mg PO DAILY 07/17/25 07/17/25 History (Jardiance) semaglutide 2 mg/dose (8 mg/3 mL) 2 mg subcut WEEKLY 07/17/25 07/17/25 History subcutaneous pen injector (Ozempic) Allergies Allergy/AdvReac Type Severity Reaction Status Date / Time Penicillins Allergy Intermediate Rash Verified 07/27/25 06:24 Vital Signs Vital Signs - 24 hr 07/27/25 06:32 Temperature 97 F L Pulse Rate 94 Respiratory Rate 18 Blood Pressure 146/82 H Pulse Oximetry 100 Oxygen Delivery Room Air Exam Const: General: cooperative and healthy appearing Resp: Effort & Inspection: normal respiratory effort and able to speak in complete sentences Auscultation: clear to auscultation bilaterally Cardio: Rate: regular rate Rhythm: regular rhythm GI: Inspection: normal to inspection GI Palp: No No hepatosplenomegaly present Auscultation: normal bowel sounds Rectal Exam: deferred Skin: General skin exam: normal color Psych: Appearance: grossly normal Mental Status: mental status grossly normal Assessment and Plan Assessment and plan (1) Dysphagia: Code(s): R13.10 - Dysphagia, unspecified Status: Acute Assessment and Plan: The patient is deemed a good candidate for the procedures. Consent signed. Will proceed.
--- NOTE | 2025-07-27 07:39 | S_PTH ---
PATIENT: Betty Landrum LOC: [facility] #:[id number] AGE/SX: 70/F ROOM: RE07/27/[address]: Damien Gaona MD : 1955 BED: DIS: 07/27/2025 SPEC #: [id number] RECD: 07/27/25 09:59 STATUS: ARTEMIO REQ #: [id number] MYRNA: 07/27/25 07:[address]: Damien Gaona DEPT: [facility] Surgical RECD BY: Chely Thakur ENTERED: 07/27/25 10:00 SP TYPE: Surgical OTHR DR: Harman Godfrey, Tissues: A - Gastric Biopsy B - Gastric Biopsy C - Esophageal Biopsy Procedures: Hematoxylin and Eosin Stain Gross and Microscopic Level 4
--- NOTE | 2025-07-27 07:42 | SUR.OPER ---
EGD END TIME 735 COLONOSCOPY START TIME 463
[2025-07-27 07:56] VITALS: BP 94/50; PULSE 86; RESP 17; O2SAT 98
[2025-07-27 08:06] VITALS: BP 90/58; PULSE 87; RESP 16; O2SAT 97
[2025-07-27 08:16] VITALS: BP 141/81; PULSE 88; RESP 20; O2SAT 100
== END 2025-07-27 08:51 | disposition home or self-care (01) ==
PROVIDERS: PCP Internal Medicine; Referring Provider Internal Medicine; Visit Provider Internal Medicine Gastroenterology
PROC: 0DJ08ZZ Inspection of Upper Intestinal Tract, Via Natural or Artificial Opening Endoscopic (ICD-10-PCS; CPT 45378; principal; 2025-07-27 07:30)
DX: Z12.11 Encounter for screening for malignant neoplasm of colon (principal); K57.30 Diverticulosis of large intestine without perforation or abscess without bleeding; K31.84 Gastroparesis; K29.50 Unspecified chronic gastritis without bleeding; K20.80 Other esophagitis without bleeding; Z79.84 Long term (current) use of oral hypoglycemic drugs
CPT/HCPCS: 43239; G0121; 82948; 88305; J2003; J2704; J7120